=== PATIENT | female | born 2000 | race Caucasian/White ===

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

== ENCOUNTER 2019-06-08 17:19 | Emergency (ER) | payer SELFPAY ==
[~2019-06-08] VITALS: Ht 157.5 cm; Wt 61.4 kg
[2019-06-08 17:24] VITALS: Ht 157.5 cm; Wt 61.4 kg
[2019-06-08] MEDS ORDERED: OMEPRAZOLE20 M1 PO (17:25)
[2019-06-08] MEDS ORDERED: CYCLOBENZAPRINE10 MG PO (17:34)
[2019-06-08 20:01] VITALS: BP 121/71
== END 2019-06-08 20:02 | disposition home or self-care (01) ==
LOC: D.ER 17:19
DX: T14.8XXA Other injury of unspecified body region, initial encounter (principal); V43.52XA Car driver injured in collision with other type car in traffic accident, initial encounter; Y93.89 Activity, other specified; Y92.410 Unspecified street and highway as the place of occurrence of the external cause